=== PATIENT | female | born 1960 | race American Indian/Alaskan Native ===

== ENCOUNTER 2018-10-03 17:31 | Observation (INO) | payer OTHER, MEDICAID ==
--- NOTE | 2018-10-03 17:59 | Emergency Department Report ---
Blank Doc - Documentation Documentation: This is a 58-year-old female that presents with abdominal with n/v. Was sent by gastro for hx of pancreatitis. This initial assessment/diagnostic orders/clinical plan/treatment(s) is/are subject to change based on patient's health status, clinical progression and re-assessment by fellow clinical providers in the ED. Further treatment and workup at subsequent clinical providers discretion. Patient/guardians urged not to elope from the ED as their condition may be serious if not clinically assessed and managed. Initial orders include: 1- Patient sent to [facility] for further evaluation and treatment 2- labs 3- UA
[2018-10-03 18:17] LABS: Basophils # (Auto) 0.1 K/mm3 (0.0-0.1); Basophils % (Auto) 0.9 % (0.0-1.8); Eosinophils # (Auto) 0.4 K/mm3 (0.0-0.4); Eosinophils % (Auto) 5.4 % (0.0-4.3); Hematocrit 36.4 % (30.3-42.9); Hemoglobin 12.1 gm/dl (10.1-14.3); Lymphocytes # (Auto) 3.4 K/mm3 (1.2-5.4); Lymphocytes % (Auto) 44.3 % (13.4-35.0); Mean Corpuscular HGB Conc 33 % (30-34); Mean Corpuscular Volume 96 fl (79-97); Monocytes # (Auto) 0.6 K/mm3 (0.0-0.8); Monocytes % (Auto) 7.2 % (0.0-7.3); Platelet Count 240 K/mm3 (140-440); Red Blood Count 3.79 M/mm3 (3.65-5.03); Red Cell Distribution Width 13.2 % (13.2-15.2)
[2018-10-03 18:43] LABS: Alanine Aminotransferase 19 units/L (7-56); Albumin 4.1 g/dL (3.9-5); BUN/Creatinine Ratio 17; Blood Urea Nitrogen 15 mg/dL (7-17); Calcium 9.8 mg/dL (8.4-10.2); Hemolysis Index 34
[2018-10-03 18:49] LABS: Bacteria,Urine 1+ /HPF (Negative); Bilirubin,Urine NEG (Negative); Blood,Urine NEG (Negative); Color,Urine Yellow (Yellow); Mucus,Urine FEW /HPF; Urobilinogen,Urine < 2.0 mg/dL (<2.0)
[2018-10-03] MEDS ORDERED: PEPCID IV ONE (20:22)
[2018-10-03] MEDS ORDERED: DILAUDID IV ONE ×2 (20:22→21:29)
[2018-10-03] MEDS ORDERED: ZOFRAN IV ONE (20:22)
[2018-10-03] MEDS ORDERED: NACL 0.9% 1000 ML 1,000 ML IV ONE (20:23)
--- NOTE | 2018-10-03 20:28 | Emergency Department Report ---
ED Abdominal Pain HPI - General Chief Complaint: Abdominal Pain Stated Complaint: ABD PAIN/NAUSEA/DIARRHEA Time Seen by Provider: 10/03/18 17:57 Source: patient Mode of arrival: Ambulatory Limitations: No Limitations - History of Present Illness Initial Comments: 58-year-old female with a past medical history of pancreatitis, diabetes, hypertension, and also complains of diarrhea 3 weeks and abdominal pain for couple of days. Patient has had diarrhea with only some mild intermittent blood in her stool. Her GI doctor Dr. Lacey scheduled outpatient CT to be performed October 08. The last couple of days patient has developed mid and upper abdominal pain radiating to the left side back with associated nausea and intermittent vomiting. Pain is moderate to severe intensity, constant, worse or palpation. She denies fevers, dysuria, hematemesis, recent travel, or recent antibiotic use. Severity scale (0 -10): 10 - Related Data Previous Rx's Medication Instructions Recorded Last Taken Type Metoclopramide [Reglan TAB] 10 mg PO Q6H PRN #30 tablet 10/04/18 Unknown Rx Ondansetron [Zofran Odt] 4 mg PO Q8HR #30 tab.rapdis 10/04/18 Unknown Rx Pantoprazole [Protonix TAB] 40 mg PO QDAY #30 tablet 10/04/18 Unknown Rx Rifaximin [Xifaxan] 550 mg PO BID #60 tablet 10/04/18 Unknown Rx traMADol [Ultram] 50 mg PO Q6HR PRN #14 tablet 10/04/18 Unknown Rx Allergies Allergy/AdvReac Type Severity Reaction Status Date / Time No Known Allergies Allergy Verified 10/03/18 17:34 ED Review of Systems ROS: Stated complaint: ABD PAIN/NAUSEA/DIARRHEA Other details as noted in HPI Comment: All other systems reviewed and negative ED Past Medical Hx - Surgical History Hx Cholecystectomy: Yes Additional Surgical History: - Social History Smoking Status: Current Every Day Smoker Substance Use Type: Alcohol - Medications Home Medications: Home Medications Medication Instructions Recorded Confirmed Last Taken Type Metoclopramide [Reglan TAB] 10 mg PO Q6H PRN #30 tablet 10/04/18 Unknown Rx Ondansetron [Zofran Odt] 4 mg PO Q8HR #30 tab.rapdis 10/04/18 Unknown Rx Pantoprazole [Protonix TAB] 40 mg PO QDAY #30 tablet 10/04/18 Unknown Rx Rifaximin [Xifaxan] 550 mg PO BID #60 tablet 10/04/18 Unknown Rx traMADol [Ultram] 50 mg PO Q6HR PRN #14 tablet 10/04/18 Unknown Rx ED Physical Exam - General Limitations: No Limitations - Other Other exam information: General: No acute distress Eyes: Normal appearance, pupils equal reactive to light, extraocular movements intact ENT: Normal oropharynx Neck: Normal appearance, no C-spine tenderness, no meningismus Chest: Clear to auscultation bilaterally, no wheezes, rales, or crackles Cardiovascular: Regular rhythm, mild tachycardia Abdomen: Soft, nondistended, generalized tenderness greatest in the mid and upper abdomen, no rebound or guarding, normal bowel sounds Back: Normal inspection, nontender, left posterior thoracic back tenderness Extremity: Normal inspection, no deformity, full range of motion Neuro: Alert and oriented 3, speech clear, no gross motor or sensory deficit Skin: No rash, once, or erythema ED Course Vital Signs 10/03/18 10/03/18 10/03/18 17:54 20:19 20:35 Temperature 98.6 F 98.1 F Pulse Rate 110 H 93 H Respiratory 18 12 16 Rate Blood Pressure 149/79 Blood Pressure 142/81 [Left] O2 Sat by Pulse 98 99 Oximetry 10/03/18 10/03/18 10/03/18 21:05 21:36 22:00 Temperature Pulse Rate 87 Respiratory 19 21 16 Rate Blood Pressure 129/81 Blood Pressure [Left] O2 Sat by Pulse 97 Oximetry 10/03/18 10/03/18 10/03/18 22:06 23:01 23:43 Temperature Pulse Rate 82 84 Respiratory 19 13 16 Rate Blood Pressure 117/69 117/69 Blood Pressure [Left] O2 Sat by Pulse 96 96 Oximetry 10/04/18 10/04/18 10/04/18 00:01 00:17 00:47 Temperature Pulse Rate 94 H Respiratory 16 16 16 Rate Blood Pressure 132/51 Blood Pressure [Left] O2 Sat by Pulse 94 Oximetry - Consultations Consultation #1: 10/03/18 21:57 Dr lacey, GI, requests admission, npo after midnight, egd in am. ED Medical Decision Making - Lab Data Result diagrams: 10/03/18 18:04 10/03/18 18:04 Lab Results 10/03/18 10/03/18 10/03/18 Range/Units 18:04 18:04 18:27 WBC 7.7 (4.5-11.0) K/mm3 RBC 3.79 (3.65-5.03) M/mm3 Hgb 12.1 (10.1-14.3) gm/dl Hct 36.4 (30.3-42.9) % MCV 96 (79-97) fl MCH 32 (28-32) pg MCHC 33 (30-34) % RDW 13.2 (13.2-15.2) % Plt Count 240 (140-440) K/mm3 Lymph % (Auto) 44.3 H (13.4-35.0) % [place] % (Auto) 7.2 (0.0-7.3) % Eos % (Auto) 5.4 H (0.0-4.3) % Baso % (Auto) 0.9 (0.0-1.8) % Lymph # 3.4 (1.2-5.4) K/mm3 [place] # 0.6 (0.0-0.8) K/mm3 Eos # 0.4 (0.0-0.4) K/mm3 Baso # 0.1 (0.0-0.1) K/mm3 Seg Neutrophils % 42.2 (40.0-70.0) % Seg Neutrophils # 3.2 (1.8-7.7) K/mm3 Sodium 138 (137-145) mmol/L Potassium 4.6 (3.6-5.0) mmol/L Chloride 102.7 (98-107) mmol/L Carbon Dioxide 21 L (22-30) mmol/L Anion Gap 19 mmol/L BUN 15 (7-17) mg/dL Creatinine 0.9 (0.7-1.2) mg/dL Estimated GFR > 60 ml/min BUN/Creatinine Ratio 17 % Glucose 160 H (65-100) mg/dL Calcium 9.8 (8.4-10.2) mg/dL Total Bilirubin 0.30 (0.1-1.2) mg/dL AST 18 (5-40) units/L ALT 19 (7-56) units/L Alkaline Phosphatase 108 (35-129) units/L Total Protein 8.9 H (6.3-8.2) g/dL Albumin 4.1 (3.9-5) g/dL Albumin/Globulin Ratio 0.9 % Lipase 34 (13-60) units/L Urine Color Yellow (Yellow) Urine Turbidity Slightly-cloudy (Clear) Urine pH 5.0 (5.0-7.0) Ur Specific [place] 1.017 (1.003-1.030) Urine Protein 30 mg/dl (Negative) mg/dL Urine Glucose (UA) Neg (Negative) mg/dL Urine Ketones Neg (Negative) mg/dL Urine Blood Neg (Negative) Urine Nitrite Neg (Negative) Urine Bilirubin Neg (Negative) Urine Urobilinogen < 2.0 (<2.0) mg/dL Ur Leukocyte Esterase Neg (Negative) Urine WBC (Auto) 3.0 (0.0-6.0) /HPF Urine RBC (Auto) 2.0 (0.0-6.0) /HPF U Epithel Cells (Auto) 6.0 (0-13.0) /HPF Urine Bacteria (Auto) 1+ (Negative) /HPF Urine Mucus Few /HPF - Radiology Data Radiology results: report reviewed CT ABDOMEN AND PELVIS WITH IV CONTRAST INDICATION: Epigastric pain with vomiting and nausea. History of pancreatitis COMPARISON: None available. TECHNIQUE: Axial CT images were obtained through the abdomen and pelvis after 100 mL IV contrast. All CT scans at this location are performed using CT dose reduction for ALARA by means of automated exposure control. FINDINGS -- ABDOMEN: Lung Bases: No acute abnormality. Liver: Normal. Gallbladder: Removed. Bile Ducts: Normal. Pancreas: Normal. Spleen: Normal. Adrenals: Normal. Right Kidney and Proximal Ureter: Normal. Left Kidney and Proximal Ureter: Normal. Stomach and Bowel: Some abnormal thickening of the distal gastric antrum. No bowel obstruction.. Lymph Nodes: No significant adenopathy. Aorta: No significant abnormality. IVC: Normal. Additional Findings: None. FINDINGS -- PELVIS: Urinary Bladder and Distal Ureters: Normal. Reproductive Organs: Calcified fibroids. Appendix: Normal. Bowel: No acute abnormality. Free Fluid: None. Lymph Nodes: No significant adenopathy. Additional Findings: None. Skeletal System: No acute abnormality. IMPRESSION: No evidence of pancreatitis. There is some abnormal thickening involving the distal gastric antrum which could be seen with gastritis. Calcified fibroids. - Medical Decision Making Patient required repeated IV doses of narcotics for pain control. No vomiting after Zofran. IV hydration with normal saline. IV Pepcid, Maalox, and viscous lidocaine provided. Case discussed with her GI doctor Dr. Lacey. Recommends admission for EGD tomorrow. Requests nothing by mouth after midnight. - Differential Diagnosis pancreatitis, obstruction, gastroenteritis, infectious diarrhea Critical Care Time: No Critical care attestation.: If time is entered above; I have spent that time in minutes in the direct care of this critically ill patient, excluding procedure time. ED Disposition Clinical Impression: Gastritis, Nausea vomiting and diarrhea, Intractable abdominal pain Disposition: OP ADMIT IP TO THIS HOSP Is pt being admited?: Yes Condition: Stable Time of Disposition: 21:58 (Dr spencer/hospitailst)
--- NOTE | 2018-10-03 21:32 | Cat Scan Report ---
CT ABDOMEN AND PELVIS WITH IV CONTRAST INDICATION: Epigastric pain with vomiting and nausea. History of pancreatitis COMPARISON: None available. TECHNIQUE: Axial CT images were obtained through the abdomen and pelvis after 100 mL IV contrast. All CT scans a t this location are performed using CT dose reduction for ALARA by means of automated exposure contro l. FINDINGS -- ABDOMEN: Lung Bases: No acute abnormality. Liver: Normal. Gallbladder: Removed. Bile Ducts: Normal. Pancreas: Normal. Spleen: Normal. Adrenals: Normal. Right Kidney and Proximal Ureter: Normal. Left Kidney and Proximal Ureter: Normal. Stomach and Bowel: Some abnormal thickening of the distal gastric antrum. No bowel obstruction.. Lymph Nodes: No significant adenopathy. Aorta: No significant abnormality. IVC: Normal. Additional Findings: None. FINDINGS -- PELVIS: Urinary Bladder and Distal Ureters: Normal. Reproductive Organs: Calcified fibroids. Appendix: Normal. Bowel: No acute abnormality. Free Fluid: None. Lymph Nodes: No significant adenopathy. Additional Findings: None. Skeletal System: No acute abnormality. IMPRESSION: No evidence of pancreatitis. There is some abnormal thickening involving the distal gastric antrum wh ich could be seen with gastritis. Calcified fibroids. Signer Name: Arden Marques MD Signed: 10/03/2018 9:27 PM Workstation Name: [facility]
[2018-10-03] MEDS ORDERED: LIDOCAINE VISCOUS 2% PO ONE (21:54)
[2018-10-03] MEDS ORDERED: ALUM-MAG HYDROX-SIMETH 200-200-20MG/5ML PO ONE (21:54)
[2018-10-03] MEDS ORDERED: NORCO 5/325 PO PRN (23:06)
[2018-10-03] MEDS ORDERED: TYLENOL PO PRN (23:06)
[2018-10-03] MEDS ORDERED: ZOFRAN IV PRN (23:06)
[2018-10-03] MEDS ORDERED: SODIUM CHLORIDE FLUSH SYRINGE 10 ML IV PRN (23:06)
[2018-10-03] MEDS ORDERED: PHENERGAN PR PRN (23:06)
[2018-10-03] MEDS ORDERED: REGLAN IV PRN (23:06)
--- NOTE | 2018-10-03 23:06 | History and Physical Report ---
History of Present Illness Chief complaint: Epigastric pain History of present illness: 58-year-old woman known to Dr. Lacey of gastroenterology. The patient was sent by her gunner's mate for abdominal pain in the epigastrium associated with nausea and vomiting. At that time was suspected that she was having a flare of pancreatitis. She states that her last BM was performed, she did have a tinge of blood around it but denies constipation, denies rectal pain. Epigastric pain is burning in nature, it is 7 out of 10 Past medical history; history of pancreatitis Past surgical history; cholecystectomy, Social history; color current every day smoker, alcohol use on occasion Family history; denies family history of IBD Medications and Allergies Allergies Allergy/AdvReac Type Severity Reaction Status Date / Time No Known Allergies Allergy Verified 10/03/18 17:34 Review of Systems All systems: negative Constitutional: anorexia Ears, nose, mouth and throat: no ear pain Breasts: deferred Cardiovascular: no chest pain Respiratory: no cough Gastrointestinal: abdominal pain, nausea, vomiting, no diarrhea, no constipation Genitourinary Female: no flank pain Rectal: no pain Musculoskeletal: no neck stiffness Integumentary: no rash Neurological: no head injury Psychiatric: no anxiety Endocrine: no cold intolerance Hematologic/Lymphatic: no easy bruising Allergic/Immunologic: no urticaria Exam - Constitutional Vitals: Temp Pulse Resp BP Pulse Ox 98.1 F 87 16 129/81 97 10/03/18 20:19 10/03/18 22:00 10/03/18 22:00 10/03/18 22:00 10/03/18 22:00 General appearance: Present: mild distress, well-nourished - EENT Eyes: Present: PERRL ENT: hearing intact, clear oral mucosa - Neck Neck: Present: supple, normal ROM - Respiratory Respiratory effort: normal Respiratory: bilateral: CTA - Cardiovascular Heart Sounds: Present: S1 & S2. Absent: rub, click - Extremities Extremities: pulses symmetrical, No edema Peripheral Pulses: within normal limits - Abdominal General gastrointestinal: Present: soft, non-tender, non-distended, normal bowel sounds Localized gastrointestinal: tender: epigastric periumbilical Female genitourinary: Present: normal - Integumentary Integumentary: Present: clear, warm, dry - Musculoskeletal Musculoskeletal: gait normal, strength equal bilaterally - Psychiatric Psychiatric: appropriate mood/affect, intact judgment & insight - Neurologic Neurologic: CNII-XII intact, moves all extremities Results - Labs CBC & Chem 7: 10/03/18 18:04 10/03/18 18:04 Labs: Laboratory Last Values WBC 7.7 K/mm3 (4.5-11.0) 10/03/18 18:04 RBC 3.79 M/mm3 (3.65-5.03) 10/03/18 18:04 Hgb 12.1 gm/dl (10.1-14.3) 10/03/18 18:04 Hct 36.4 % (30.3-42.9) 10/03/18 18:04 MCV 96 fl (79-97) 10/03/18 18:04 MCH 32 pg (28-32) 10/03/18 18:04 MCHC 33 % (30-34) 10/03/18 18:04 RDW 13.2 % (13.2-15.2) 10/03/18 18:04 Plt Count 240 K/mm3 (140-440) 10/03/18 18:04 Lymph % (Auto) 44.3 % (13.4-35.0) H 10/03/18 18:04 [place] % (Auto) 7.2 % (0.0-7.3) 10/03/18 18:04 Eos % (Auto) 5.4 % (0.0-4.3) H 10/03/18 18:04 Baso % (Auto) 0.9 % (0.0-1.8) 10/03/18 18:04 Lymph # 3.4 K/mm3 (1.2-5.4) 10/03/18 18:04 [place] # 0.6 K/mm3 (0.0-0.8) 10/03/18 18:04 Eos # 0.4 K/mm3 (0.0-0.4) 10/03/18 18:04 Baso # 0.1 K/mm3 (0.0-0.1) 10/03/18 18:04 Seg Neutrophils % 42.2 % (40.0-70.0) 10/03/18 18:04 Seg Neutrophils # 3.2 K/mm3 (1.8-7.7) 10/03/18 18:04 Sodium 138 mmol/L (137-145) 10/03/18 18:04 Potassium 4.6 mmol/L (3.6-5.0) 10/03/18 18:04 Chloride 102.7 mmol/L (98-107) 10/03/18 18:04 Carbon Dioxide 21 mmol/L (22-30) L 10/03/18 18:04 19 mmol/L 10/03/18 18:04 BUN 15 mg/dL (7-17) 10/03/18 18:04 0.9 mg/dL (0.7-1.2) 10/03/18 18:04 Estimated GFR > 60 ml/min 10/03/18 18:04 17 % 10/03/18 18:04 Glucose 160 mg/dL (65-100) H 10/03/18 18:04 Calcium 9.8 mg/dL (8.4-10.2) 10/03/18 18:04 0.30 mg/dL (0.1-1.2) 10/03/18 18:04 AST 18 units/L (5-40) 10/03/18 18:04 ALT 19 units/L (7-56) 10/03/18 18:04 108 units/L (35-129) 10/03/18 18:04 8.9 g/dL (6.3-8.2) H 10/03/18 18:04 4.1 g/dL (3.9-5) 10/03/18 18:04 0.9 % 10/03/18 18:04 34 units/L (13-60) 10/03/18 18:04 Yellow (Yellow) 10/03/18 18:27 Slightly-cloudy (Clear) 10/03/18 18:27 5.0 (5.0-7.0) 10/03/18 18:27 Ur Specific [place] 1.017 (1.003-1.030) 10/03/18 18:27 30 mg/dl mg/dL (Negative) 10/03/18 18:27 Neg mg/dL (Negative) 10/03/18 18:27 Neg mg/dL (Negative) 10/03/18 18:27 Neg (Negative) 10/03/18 18:27 Neg (Negative) 10/03/18 18:27 Neg (Negative) 10/03/18 18:27 < 2.0 mg/dL (<2.0) 10/03/18 18:27 Ur Leukocyte Esterase Neg (Negative) 10/03/18 18: 3.0 /HPF (0.0-6.0) 10/03/18 18: 2.0 /HPF (0.0-6.0) 10/03/18 18: U Epithel Cells (Auto) 6.0 /HPF (0-13.0) 10/03/18 18: 1+ /HPF (Negative) 10/03/18 18: Few /HPF 10/03/18 18:27 Assessment and Plan Assessment and plan: 58-year-old woman who presented to the hospital abdominal pain nausea vomiting and diarrhea with intermittent blood in it CT abdomen and pelvis; no evidence of pancreatitis, abnormal thickening involving the distal gastric antrum just suspicious for possible gastritis, calc ified fibroids Abdominal pain/ nausea/ vomiting Suspicious for gastritis, keep nothing by mouth, has received Pepcid, PPI daily, plan for scope in a.m. -Lipase negative, CT shows normal pancreas, therefore not consistent with pancreatitis blood tinged stool -likely a hemorrhoidal bleed, cbc wnl, denies diarrhea, GI on board dvt ppx lovenox
[2018-10-04] MEDS ORDERED: NACL 0.45% 1000 ML 1,000 ML IV ONE (00:05)
[2018-10-04] MEDS: NACL 0.45% 1000 ML 1,000 ML IV SCH ×2 (00:06→09:45)
[2018-10-04] MEDS ORDERED: DILAUDID ONE (00:17)
[2018-10-04] MEDS: DILAUDID IV PRN ×3 (00:17→10:13)
[2018-10-04] MEDS ORDERED: SODIUM CHLORIDE FLUSH SYRINGE 10 ML IV SCH (10:00)
[2018-10-04] MEDS ORDERED: LOVENOX SUB-Q SCH (10:00)
[2018-10-04] MEDS ORDERED: PROTONIX IV SCH (10:00)
--- NOTE | 2018-10-04 11:14 | Discharge Summary ---
Providers - Providers Date of Admission: 10/03/18 23:06 Attending physician: NAILA BARONE MD 10/03/18 21:53 Consult to Physician [CONS] Urgent Comment: Consulting Provider: ELDER LACEY Physician Instructions: Reason For Exam: gastritis, vomiting, abdominal pain Primary care physician: TANVIR TAVAREZ MD Hospitalization Reason for admission: abdominal pain Condition: Stable Hospital course: 58-year-old woman known to Dr. Lacey of gastroenterology. The patient was sent by her broomcorn scraper for abdominal pain in the epigastrium associated with nausea and vomiting. At that time was suspected that she was having a flare of pancreatitis. She states that her last BM was performed, she did have a tinge of blood around it but denies constipation, denies rectal pain. Epigastric pain is burning in nature, it is 7 out of 10. Patient proceeded and had endsocpuy with findings showing gastritis/Gastroparesis and Gastric Bezoar/Patent Pylorus/Moderat,Erosive Esophagitis/R/O Celiac Disease she was discharged with outpatient follow up recommended with GI also on PPI,Reglan and Rifaximin (for SIBO). Follow up in 7 to 10 days ([phone]). Avoid aspirin, NSAID and anticoagulants.) Abdominal pain/ nausea/ vomiting secondary to Gastritis blood tinged stool -likely a hemorrhoidal bleed, Morbid Obesity Disposition: DC-01 TO HOME OR SELFCARE Time spent for discharge: 35 mins Core Measure Documentation - Palliative Care Palliative Care/ Comfort Measures: Not Applicable - Core Measures Any of the following diagnoses?: none Exam - Constitutional Vitals: Temp Pulse Resp BP Pulse Ox 97.9 F 88 18 98/72 99 10/04/18 05:23 10/04/18 05:23 10/04/18 05:23 10/04/18 05:23 10/04/18 05:23 General appearance: Present: no acute distress, well-nourished, obese - EENT Eyes: Present: PERRL, EOM intact ENT: hearing intact, clear oral mucosa - Neck Neck: Present: supple, normal ROM - Respiratory Respiratory: bilateral: CTA - Cardiovascular Rhythm: regular Heart Sounds: Present: S1 & S2. Absent: systolic murmur, diastolic murmur - Extremities Extremities: no ischemia, pulses intact, pulses symmetrical, No edema, normal temperature, normal color, Full ROM Peripheral Pulses: within normal limits - Abdominal General gastrointestinal: Present: soft, non-tender, non-distended, normal bowel sounds - Integumentary Integumentary: Present: clear, warm, dry - Musculoskeletal Musculoskeletal: strength equal bilaterally - Psychiatric Psychiatric: appropriate mood/affect, intact judgment & insight - Neurologic Neurologic: CNII-XII intact, moves all extremities - Allied Health Allied health notes reviewed: nursing Plan Activity: advance as tolerated, fall precautions Diet: low fat Special Instructions: record daily BP diary Follow up with: TANVIR TAVAREZ MD [Primary Care Provider] - 7 Days ELDER LACEY MD [Staff Physician] - 7 Days Prescriptions: Pantoprazole [Protonix TAB] 40 mg PO QDAY #30 tablet Metoclopramide [Reglan TAB] 10 mg PO Q6H PRN #30 tablet PRN Reason: Nausea And Vomiting traMADol [Ultram] 50 mg PO Q6HR PRN #14 tablet PRN Reason: Pain Rifaximin [Xifaxan] 550 mg PO BID #60 tablet Ondansetron [Zofran Odt] 4 mg PO Q8HR #30 tab.jeny
[2018-10-04] MEDS ORDERED: XYLOCAINE MPF 2% ONE (13:00)
[2018-10-04] MEDS ORDERED: NACL 0.9% 1000 ML 1,000 ML IV SCH (13:00)
--- NOTE | 2018-10-04 13:25 | Anesthesia Consultation ---
Anesthesia Consult and Med Hx Date of service: 10/04/18 - Airway Anesthetic Teeth Evaluation: Poor (multiple missing teeth) ROM Head & Neck: Adequate Mental/Hyoid Distance: Adequate Mallampati Class: Class III Intubation Access Assessment: Possibly Difficult - Pre-Operative Health Status ASA Pre-Surgery Classification: ASA3 Proposed Anesthetic Plan: MAC - Pulmonary Hx Smoking: Yes (1/4 p/day x 40 years) Hx Asthma: Yes COPD: No Hx Pneumonia: Yes Hx Sleep Apnea: Yes - Cardiovascular System Hx Hypertension: Yes - Central Nervous System Hx Psychiatric Problems: No - Endocrine Hx End Stage Renal Disease: No Hx Hypothyroidism: Yes - Hematic Hx Anemia: Yes - Other Systems Hx Cancer: No Hx Obesity: Yes (BMI 44.4)
--- NOTE | 2018-10-04 13:27 | Anesthesia Day of Surgery ---
Anesthesia Day of Surgery - Day of Surgery Patient Examined: Yes Patient H&P Reviewed: Yes Patient is NPO: Yes
[2018-10-04] MEDS ORDERED: SUBLIMAZE ONE (13:39)
[2018-10-04] MEDS ORDERED: DIPRIVAN 10 MG/ML IV ONE (13:40)
--- NOTE | 2018-10-04 13:58 | Procedure Note ---
Date of procedure: 10/04/18 Pre-op diagnosis: Abdominal Pain Post-op diagnosis: other (Gastritis/Gastroparesis and Gastric Bezoar/Patent Pylorus/Moderat,Erosive Esophagitis/R/O Celiac Disease) Procedure: EGD with Biopsy Anesthesia: MAC Surgeon: ELDER CUELLO Estimated blood loss: minimal Pathology: list Specimen disposition: to lab Condition: stable Disposition: same day (Patient may be discharged from a GI standpoint. Discharge on PPI,Reglan and Rifaximin (for SIBO). Follow up in 7 to 10 days ([phone]). Avoid aspirin, NSAID and anticoagulants.)
[2018-10-04] MEDS ORDERED: REGLAN PO PRN (14:00)
[2018-10-04 14:22] VITALS: BP 107/64
--- NOTE | 2018-10-04 15:04 | Operative Report ---
PROCEDURE: EGD with biopsy. INDICATIONS: A 58-year-old slightly obese -[place] female with an underlying history of diabetes, hypertension, prior history of pancreatitis, history of tobacco and alcohol use, who had presented to the hospital with abdominal pain. CT scan was suggestive of the patient having gastritis, but no CT or radiologic evidence of pancreatitis. EGD was done to assess for the gastritis and any other significant upper GI pathology. DESCRIPTION OF PROCEDURE: The procedure was done after getting informed consent with MAC anesthesia. Instrument was passed through the hypopharynx into the esophagus, which showed moderate distal erosive esophagitis. Photo documentation and biopsy was obtained. The stomach showed presence of gastroparesis with gastric bezoar and a patent pylorus. There was some antral gastritis present. Biopsy was done from the gastric antrum, angular incisura and gastric body to rule out for H. pylori and atrophic gastritis. The pylorus was patent. Duodenum in the first and second portion appeared normal. Biopsy was done from the second part to rule out for possible celiac disease. There was minimal bleeding associated with the procedure. ASSESSMENT: Abdominal pain, moderate erosive esophagitis, gastritis, gastroparesis with gastric bezoar, rule out celiac disease. PLAN: Treat the patient with Reglan, PPI. The patient may be started on a diabetic diet and also placed on rifaximin to treat for any small bowel or intestinal overgrowth and avoid aspirin and aspirin-related products. The patient may be discharged from a GI standpoint with advice to follow up with me on an outpatient basis. Further workup will be done as an outpatient. The procedure was done in the GI lab with assistance of the GI lab team, which included Kate BASSETT and Francisco bob and also with the assistance of anesthesia. JOB# [id number] PADMINI/CINDY
[2018-10-04] MEDS ORDERED: XIFAXAN PO SCH (22:00)
--- NOTE | 2018-10-05 02:59 | Consultation ---
HISTORY OF PRESENT ILLNESS: A 58-year-old slightly obese -[place]ian female with an underlying history of hypertension, diabetes, prior history of pancreatitis and also has a history of smoking and on occasion drinks alcohol. She had presented to the hospital because of abdominal pain and persistent nausea, vomiting and diarrhea. She was evaluated in the ER. Electrolytes were noted to be normal. Lab work was noted to be normal and the patient underwent a CT scan, which did not show any significant pathology with the pancreas, but did show evidence of gastritis for which the patient is to have an EGD done. ALLERGIES: No known allergies. SOCIAL HISTORY: Significant for smoking. Also, drinks alcohol on occasion. PHYSICAL EXAMINATION: VITAL SIGNS: Vitals otherwise are stable. HEENT: Shows no JVD. LUNGS: Clear to auscultation. CARDIOVASCULAR: Normal. ABDOMEN: Shows some mid abdominal tenderness. Bowel sounds present. EXTREMITIES: No pedal edema. NEUROLOGIC: She is alert and oriented. LABORATORY DATA: Showed normal electrolytes, BUN, creatinine and otherwise essentially normal labs. ASSESSMENT: Gastritis, abdominal pain, prior history of pancreatitis but no history of pancreatitis at present, hypertension, obesity, and history of nicotine use. PLAN: To do an EGD and check a gastrin level and also check the patient for possible atrophic gastritis. Discharged the patient. The patient is otherwise doing well and possibly have the patient come back for an outpatient colonoscopy at a later date. JOB# [id number] PADMINI/CINDY MISHRA
[2018-10-05] MEDS ORDERED: PROTONIX PO SCH (10:00)
== END 2018-10-04 16:30 | disposition home or self-care (01) ==
LOC: ED 17:31 → 3A 23:06
PROVIDERS: ADMIT Internal Medicine; ATTEND Internal Medicine
DX: R10.13 Epigastric pain (principal); R11.2 Nausea with vomiting, unspecified; R19.7 Diarrhea, unspecified
CPT/HCPCS: 36415; 43239; 74177; 80053; 81001; 82962; 83690; 85025; 88305; 88342; 96361; 96374; 96375; 96376; 99284; 99406; C9113; G0378; J1170; J2405; J2704; J3010; J7030; Q9967

== ENCOUNTER 2018-12-06 08:57 | Day surgery (SDC) | payer MEDICARE ==
[2018-12-06] MEDS ORDERED: PHENYLEPHRINE/NS Syringe 1,000 MCG/10 ML IV ONE (09:30)
[2018-12-06] MEDS ORDERED: DIPRIVAN 10 MG/ML IV ONE ×2 (09:32→09:33)
[2018-12-06] MEDS ORDERED: XYLOCAINE 1% 20 mL ONE (09:33)
[2018-12-06] MEDS ORDERED: XYLOCAINE 2% INFILTRATI ONE (09:34)
--- NOTE | 2018-12-06 09:47 | Anesthesia Day of Surgery ---
Anesthesia Day of Surgery - Day of Surgery Patient Examined: Yes Patient H&P Reviewed: Yes Patient is NPO: Yes
--- NOTE | 2018-12-06 09:48 | Anesthesia Consultation ---
Anesthesia Consult and Med Hx Date of service: 12/06/18 - Airway Anesthetic Teeth Evaluation: Good ROM Head & Neck: Adequate Mental/Hyoid Distance: Adequate Mallampati Class: Class III Intubation Access Assessment: Probably Good - Pre-Operative Health Status ASA Pre-Surgery Classification: ASA2 Proposed Anesthetic Plan: MAC - Pulmonary Hx Smoking: Yes (1/4 p/day x 40 years) Hx Asthma: Yes COPD: No Hx Pneumonia: Yes Hx Sleep Apnea: Yes - Cardiovascular System Hx Hypertension: Yes - Central Nervous System Hx Psychiatric Problems: No - Endocrine Hx End Stage Renal Disease: No Hx Hypothyroidism: Yes - Hematic Hx Anemia: Yes - Other Systems Hx Cancer: No Hx Obesity: Yes (BMI 44.4)
[2018-12-06] MEDS ORDERED: NACL 0.9% 1000 ML 1,000 ML IV SCH (10:00)
--- NOTE | 2018-12-06 10:20 | Procedure Note ---
Date of procedure: 12/06/18 Pre-op diagnosis: Colon Polyp Screening and Hematochezia Post-op diagnosis: other (Hematochezia secondary to minor Internal Hemorrhoid (not significant enough for banding)/Solitary,Descending Colon Polyp (removed by cold biopsy)/ No Diverticular Disease noted) Procedure: Colonoscopy with Cold Biopsy Anesthesia: ABDIAS Surgeon: ELDER CUELLO Estimated blood loss: minimal Pathology: list Specimen disposition: to lab Condition: stable Disposition: same day (Avoid apirin and NSAID for 4 days; otherwise resume home medication. Follow up in 1 to 2 weeks ([phone]).)
--- NOTE | 2018-12-06 10:31 | Operative Report ---
PROCEDURE: Colonoscopy. INDICATIONS: This is a 58-year-old -[place] female who recently had noticed some lower GI bleeding. Colonoscopy was done to assess for the bleeding and also as part of colon polyp screening. DESCRIPTION OF PROCEDURE: Procedure was done after getting informed consent with MAC anesthesia. Initial rectal exam was unremarkable. The instrument was passed through the rectum onto the cecum, which was identified with ileocecal valve and appendiceal orifice. Visualization was fair to good. Cecum, ascending colon and transverse colon showed normal mucosa. There were a solitary small 8 mm polyp noted in the descending colon that was removed by cold biopsy. There was minimal bleeding associated with the polypectomy. The remaining part of the descending colon and the sigmoid showed normal mucosa. The rectum on the retroverted view showed minor internal hemorrhoid, which may have been the cause of the hematochezia, but was not significant enough for banding to be done at present. ASSESSMENT: Hematochezia secondary to minor internal hemorrhoids not significant enough for banding, colon polyp screening, solitary small descending colon polyp noted that was removed by cold biopsy. No diverticular disease was noted. There was minimal bleeding associated with the polypectomy stated above. No complications associated with the procedure. Procedure was done in the GI lab with assistance of the GI lab team, which included GI nurse, RN, Niki Julien and with assistance of anesthesia. The patient will be asked to follow up in the office in 1-2 weeks' time and to avoid aspirin and aspirin-related products for the next 4 days, but resume other medications and to use [id number] hemorrhoidal medications. [facility]# [id number] PADMINI/CINDY
--- NOTE | 2018-12-06 10:45 | Post Anesthesia Evaluation ---
- Post Anesthesia Evaluation Patient Participated: Yes Airway Patent: Yes Stable Respiratory Function: Yes Nausea/Vomiting: No Temp > 96.8F: Yes Pain Manageable: Yes Adequeate Hydration: Yes Anesthesia Complications: No Block Receding Appropriately: Not Applicable Patient on Ventilator: No
[2018-12-06 11:18] VITALS: BP 131/77
== END 2018-12-06 11:35 | disposition home or self-care (01) ==
LOC: GIO 08:57
DX: K92.1 Melena (principal); K92.2 Gastrointestinal hemorrhage, unspecified; K64.8 Other hemorrhoids; D12.4 Benign neoplasm of descending colon; F17.210 Nicotine dependence, cigarettes, uncomplicated; E78.00 Pure hypercholesterolemia, unspecified; I10 Essential (primary) hypertension; J45.909 Unspecified asthma, uncomplicated; E66.9 Obesity, unspecified; E03.9 Hypothyroidism, unspecified; Z80.0 Family history of malignant neoplasm of digestive organs; Z80.8 Family history of malignant neoplasm of other organs or systems; Z79.899 Other long term (current) drug therapy; Z90.49 Acquired absence of other specified parts of digestive tract; Z98.891 History of uterine scar from previous surgery; Z83.3 Family history of diabetes mellitus; Z82.61 Family history of arthritis; Z98.890 Other specified postprocedural states; Z86.2 Personal history of diseases of the blood and blood-forming organs and certain disorders involving the immune mechanism; Z82.49 Family history of ischemic heart disease and other diseases of the circulatory system
CPT/HCPCS: 45380; 82962; 88305; J2370; J2704; J7030